=== PATIENT | female | born 1965 | race Caucasian/White ===

== ENCOUNTER 2017-09-19 10:36 | Outpatient (CLI) | payer BC ==
--- NOTE | 2017-09-25 16:15 | MMO ---
BILATERAL SCREENING MAMMOGRAM: History: Annual exam. Comparison: 01-27-15 FINDINGS: This study is interpreted with the assistance of computer aided detection. There are scattered fibroglandular elements bilaterally. No suspicious mass, calcification, or area of articular sclerosis. IMPRESSION: BIRADS category 1 - negative exam. Recommend routine annual mammographic screening. POS: ADAM
== END 2017-09-19 10:37 | disposition home or self-care (01) ==
LOC: SCSMAMMO 10:36
PROVIDERS: ATTEND Family Medicine
DX: Z12.31 Encounter for screening mammogram for malignant neoplasm of breast (principal)
CPT/HCPCS: 77067

== ENCOUNTER 2018-10-16 09:16 | Outpatient (CLI) | payer BC ==
--- NOTE | 2018-10-16 11:09 | MMO ---
Bilateral MAMMO Bilat Screen [facility]. CLINICAL HISTORY: Patient is 53 years old and is seen for screening. The patient has no family history of breast cancer. The patient has a history of Skin cancer at age 53. VIEWS: The views performed were: bilateral craniocaudal and bilateral mediolateral oblique. FILMS COMPARED: The present examination has been compared to prior imaging studies performed at [facility] on 09/19/2017, and at [facility] on 06/21/2013, 01/27/2015 and 03/09/2016. This study has been interpreted with the assistance of computer-aided detection. MAMMOGRAM FINDINGS: There are scattered fibroglandular densities. There are no suspicious masses, suspicious calcifications, or new areas of architectural distortion. IMPRESSION: THERE IS NO MAMMOGRAPHIC EVIDENCE OF MALIGNANCY. A ROUTINE FOLLOW-UP MAMMOGRAM IN 1 YEAR IS RECOMMENDED. ACR BI-RADS Category 1 - Negative MAMMOGRAPHY NOTE: 1. A negative mammogram report should not delay a biopsy if a dominant of clinically suspicious mass is present. 2. Approximately 10% to 15% of breast cancers are not detected by mammography. 3. Adenosis and dense breasts may obscure an underlying neoplasm. Reported by: HEDY CARY MD Electonically Signed: [id number]
== END 2018-10-16 09:17 | disposition home or self-care (01) ==
LOC: SCSMAMMO 09:16
PROVIDERS: ATTEND Family Medicine
DX: Z12.31 Encounter for screening mammogram for malignant neoplasm of breast (principal); Z85.828 Personal history of other malignant neoplasm of skin
CPT/HCPCS: 77067